=== PATIENT | female | born 1980 | race African-American/Black ===

== ENCOUNTER 2017-10-25 11:48 | Emergency (ER) | payer BC ==
[~2017-10-25] VITALS: Ht 172.7 cm; Wt 60.9 kg
[~2017-10-25 11:48] MED LIST: ENDOCET 5-3251 EACH PO; IBUPROFEN800 MG PO; NATAZIA 28 TAB1 EACH PO
[2017-10-25 13:47] LABS: APPEARANCE CLEAR ((CLEAR)); BILIRUBIN NEGATIVE; BLOOD SMALL; COLOR STRAW ((YELLOW)); GLUCOSE (STRIP) NEGATIVE; KETONES NEGATIVE; LEUKOCYTES NEGATIVE; NITRITE NEGATIVE; PROTEIN (STRIP) NEGATIVE; SPECIFIC GRAVITY 1.006 (1.000-1.030); UROBILINOGEN 0.2 MG/DL (0.2-1.0)
[2017-10-25 13:55] LABS: BACTERIA NONE SEEN /HPF; EPITHELIAL CELLS RARE /HPF; MUCUS NONE SEEN /LPF; RED BLOOD CELLS 0-5 /HPF (0-5); WHITE BLOOD CELLS 0-5 /HPF (0-5)
[2017-10-25] MEDS ORDERED: LIDODERM 5% P1 PATCH TD (14:23)
[2017-10-25] MEDS ORDERED: MEDROL DOSEPAK4 MG PO (14:23)
[2017-10-25] MEDS ORDERED: FLEXERIL10 MG PO (14:23)
[2017-10-25 14:40] VITALS: BP 137/95
== END 2017-10-25 14:40 | disposition home or self-care (01) ==
LOC: EME 11:48
PROVIDERS: Nurse Practitioner Family
DX: M54.16 Radiculopathy, lumbar region (principal)
CPT/HCPCS: 81003; 81025; 99281; 99283; J7512